=== PATIENT | female | born 1985 | race Caucasian/White ===

== ENCOUNTER 2017-06-14 23:16 | Emergency (ER) | payer SELFPAY ==
[~2017-06-14] VITALS: Ht 170.2 cm; Wt 63.8 kg
[2017-06-15 01:06] VITALS: BP 131/89
== END 2017-06-15 01:07 | disposition home or self-care (01) ==
LOC: EME 23:16 → EXP 23:16
DX: S50.02XA Contusion of left elbow, initial encounter (principal); S09.90XA Unspecified injury of head, initial encounter; S20.211A Contusion of right front wall of thorax, initial encounter; V03.10XA Pedestrian on foot injured in collision with car, pick-up truck or van in traffic accident, initial encounter; Y92.410 Unspecified street and highway as the place of occurrence of the external cause; F17.200 Nicotine dependence, unspecified, uncomplicated; Z88.0 Allergy status to penicillin; Z79.899 Other long term (current) drug therapy
CPT/HCPCS: 99281; 99284